=== PATIENT | male | born 1990 | race African-American/Black ===

== ENCOUNTER 2021-01-13 22:10 | Emergency (ER) | payer OTHER ==
[~2021-01-13] VITALS: Ht 180.3 cm; Wt 131.5 kg
[2021-01-14] MEDS ORDERED: MOBIC15 MG PO (00:43)
[2021-01-14] MEDS ORDERED: ZOFRAN ODT4 MG PO (00:43)
[2021-01-14 00:54] VITALS: BP 153/92
== END 2021-01-14 00:54 | disposition home or self-care (01) ==
LOC: ER 22:10
DX: B34.9 Viral infection, unspecified (principal); I10 Essential (primary) hypertension; Z20.822 Contact with and (suspected) exposure to COVID-19

== ENCOUNTER 2021-01-15 17:06 | Emergency (ER) | payer OTHER ==
[~2021-01-15] VITALS: Ht 180.3 cm; Wt 131.5 kg
[~2021-01-15 17:06] MED LIST: MOBIC15 MG PO; ZOFRAN ODT4 MG PO
[2021-01-15 17:44] LABS: URINE BLOOD 3+ (Negative); URINE COLOR YELLOW; URINE GLUCOSE-RANDOM* NEGATIVE (Negative); URINE KETONES 1+ (Negative); URINE LEUKOCYTES-REFLEX NEGATIVE (Negative); URINE NITRITE-REFLEX NEGATIVE (Negative); URINE PROTEIN (DIPSTICK) 3+ (Negative)
[2021-01-15 17:50] LABS: ABSOLUTE NEUTROPHILS 8.8 thou/uL (1.4-8.2); BASOPHILS 0.6 % (0.0-2.0); EOSINOPHILS 0.1 % (0.0-3.0); HEMATOCRIT 42.6 % (42.0-52.0); HEMOGLOBIN 15.1 gm/dL (14.0-18.0); LYMPHOCYTES 4.8 % (24.0-44.0); MCHC 35.6 g/dL (28.0-37.0); MCV 84.2 fL (80.0-100.0); MONOCYTES 3.2 % (1.0-8.0); PLATELET COUNT 174 thou/uL (150-400); POLYS 91.3 % (36.0-66.0); RBC 5.05 mil/uL (4.50-6.00); RDW 13.4 % (10.5-14.5); WBC 9.6 thou/uL (4.0-11.0)
[2021-01-15 17:51] LABS: ICTOTEST (BILI CONFIRMATORY) Negative (Negative); URINE BILIRUBIN NEGATIVE (Negative); URINE CLARITY SL HAZY
[2021-01-15 17:55] LABS: CALCIUM 7.6 mg/dL (8.5-10.1); CREATININE 1.5 mg/dL (0.7-1.3); POTASSIUM 3.1 mmol/L (3.5-5.1)
[2021-01-15 17:55] LABS: CASTS None Seen /LPF (None Seen); SQUAMOUS 0-3 Few /LPF (0-3); URINE RBC 3-10 Few /HPF (NONE SEEN); URINE WBC-REFLEX 6-15 Few /HPF (0-5)
[2021-01-15 17:56] LABS: CRYSTALS None Seen /LPF (None Seen)
[2021-01-15 18:01] LABS: ALBUMIN 2.9 g/dL (3.4-5.0); TOTAL BILIRUBIN 1.7 mg/dL (0.2-1.0); TOTAL PROTEIN 7.6 g/dL (6.4-8.2)
[2021-01-15 21:10] VITALS: BP 154/94
--- NOTE | 2021-01-16 08:37 | EKG ---
[address] [address] [place] [address] ELECTROCARDIOGRAM REPORT Name: ANKIT ESQUEDA Room #: DEP HARDY Matt#: [id number] Admission: 01/15/21 Attend Phys: Discharge: 01/15/21 Date of : 86 Report #: [id number] [facility] ED Test Date: 2021-01-15 Test Time: 20:18:55 Pat Name: ANKIT ESQUEDA Department: Room: Gender: Taxi [employer]: ted : 1990 Requested By: Amisha Elliott Order Number: [id number] MD: Abel Moreland Measurements Intervals [place] Rate: 98 P: 59 CA: 149 QRS: 45 QRSD: 87 T: 14 QT: 342 QTc: 437 Interpretive Statements Sinus rhythm Poor R wave progression Baseline wander in lead(s) V5 No previous ECG available for comparison Electronically Signed On 01-16-2021 8:37:23 CDT by Abel Moreland [email or web address] <ELECTRONICALLY SIGNED> By: Abel Moreland MD, [facility] 01/16/21 0837 17 17 Abel Moreland MD, FACC /EPI
== END 2021-01-15 21:15 | disposition left against medical advice (07) ==
LOC: ER 17:06
PROVIDERS: Emergency Medicine
DX: J18.9 Pneumonia, unspecified organism (principal); E87.1 Hypo-osmolality and hyponatremia; R94.5 Abnormal results of liver function studies; R07.9 Chest pain, unspecified; I10 Essential (primary) hypertension; F17.210 Nicotine dependence, cigarettes, uncomplicated; Z79.1 Long term (current) use of non-steroidal anti-inflammatories (NSAID); Z79.899 Other long term (current) drug therapy; Z20.822 Contact with and (suspected) exposure to COVID-19